=== PATIENT | female | born 1930 | race Caucasian/White ===

== ENCOUNTER → 2017-08-12 | Outpatient (CLI) | payer MEDICARE ==
[~2017-08-12] MED LIST: ALEN70TA43 PO; AMLO-99 PO; CHOL500016 PO; LEVO25TA61 PO; THYR30TA21 PO
--- NOTE | 2017-08-12 11:32 | RADIOLOGY IMAGING REPORT ---
FACILITY: [facility] PATIENT NAME: Ruthann Harding : 1930 MR: [id number] V: [id number] EXAM DATE: ORDERING PHYSICIAN: FLOWER ZHU TECHNOLOGIST: Location: [facility] [place] Patient: Ruthann Harding : 1930 Visit/Account:[id number] Date of Sevice: 08/12/2017 Renal ultrasound Indication: Elevated creatinine Comparison: None available Findings: Right kidney measures 8.8 x 4.0 x 3.5 cm in cc, AP, and transverse dimensions respectively. Intraren al waveform morphology is within normal limits. Very mild right hydronephrosis. Cortical echogenici ty is within normal limits. No mass, perinephric stranding or stone is noted. Left kidney measures 8.8 x 4.3 x 4.1 cm in cc, AP, and transverse dimensions respectively. Intrarena l waveform morphology is within normal limits. 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 Overall, cortical echogenicity is within normal limits. No mandy rning mass, stone or perinephric stranding is noted. Bladder was initially distended. Prevoid volume is 267.1 mL. Post void residual is 56.5 mL. Bilateral ureteral jets are noted. Aorta and IVC are patent. IMPRESSION: 1. Very mild right-sided hydronephrosis. Otherwise, unremarkable renal ultrasound. 2. Post void residual is 56.5 mL Report Dictated By: Johny Marte MD at 08/12/2017 11:24 AM Report E-Signed By: Johny Marte MD at 08/12/2017 11:27 AM WSN:[email or web address]
== END ==
LOC: US 02:32
PROVIDERS: ATTEND Emergency Medicine
DX: N13.30 Unspecified hydronephrosis (principal); R33.9 Retention of urine, unspecified
CPT/HCPCS: 76705

== ENCOUNTER → 2017-08-13 | Outpatient (CLI) | payer MEDICARE | LOC: LAB 12:52 | PROVIDERS: ATTEND Emergency Medicine | DX: R93.429 Abnormal radiologic findings on diagnostic imaging of unspecified kidney (principal) | CPT/HCPCS: 81001 ==

== ENCOUNTER → 2017-11-05 | Outpatient (CLI) | payer MEDICARE ==
[~2017-11-05] MED LIST changes: +LEVO50TA86 PO
[2017-11-05 11:53] LABS: PLATELET COUNT, AUTOMATED 245 K/uL (150-450)
== END ==
LOC: LAB 11:33
PROVIDERS: ATTEND Emergency Medicine
DX: E03.9 Hypothyroidism, unspecified (principal); K62.5 Hemorrhage of anus and rectum; M85.80 Other specified disorders of bone density and structure, unspecified site
CPT/HCPCS: 36415; 82306; 84443; 85025

== ENCOUNTER → 2017-11-06 | Outpatient (CLI) | payer MEDICARE ==
--- NOTE | 2017-11-06 15:49 | RADIOLOGY IMAGING REPORT ---
FACILITY: [facility] [place] PATIENT NAME: Ruthann Harding : 1930 MR: [id number] V: [id number] EXAM DATE: ORDERING PHYSICIAN: FLOWER ZHU TECHNOLOGIST: Location: [facility] Patient: Ruthann Harding : 1930 Visit/Account:[id number] Date of Sevice: 11/06/2017 DEXA Scan Clinical history: Osteopenia, postmenopausal, taking Fosamax. Comparison: DEXA scan from 09/25/2016. LUMBAR SPINE: The bone mineral density (BMD) measured from L1-L4 correlates with a Z-score of 2.1 and a T-score of 0 which is Normal as defined by the World Health Organization. The corresponding risk of fracture in the lumbar spine is Not increased compared with a young adult reference population. This value has increased by 4.5 % since the prior study. More than 5% change is considered significant. HIP: Bone mineral density (BMD) measured in the LEFT total hip region correlates with a Z-score 0.8 and a T-score of -1.7 which is osteopenia as defined by the World Health Organization. The corresponding r isk of fracture in the hip is 3-4 times increased compared to a young adult reference population. Thi s value has decreased by -0.4 % since the prior study. More than 5% change is considered significant . T score left femoral neck -2.7 Bone mineral density (BMD) measured in the Femoral Neck region measures 0.657 g/cm?. IMPRESSION: 1. Lumbar spine: Normal. There has been 4.5% increase in the bone mineral density since the previou s exam. 2. Left Total Hip: Osteopenia. There has been 0.4% decrease in the bone mineral density since the p revious exam. 3. Femoral Neck: Bone Mineral Density is 0.657 g/cm? The next DEXA scan of this patient should include the following sites: L1-L4 and the left hip. FRAX? WHO Fracture Risk Assessment Tool link: <http://www.shef.ac.uk/FRAX/tool.jsp?locationValue=9> PLEASE NOTE: 1) The World Health Organization defines low BMD as follows: T-score Normal > -1 Osteopenia < -1 and > -2.5 Osteoporosis < -2.5 without fractures Established osteoporosis < -2.5 with fractures 2) In general, you may wish to consider: Diagnosis Treatment Follow-up DEXA Normal BMD Prevention 2-3 years Osteopenia Prevention/therapy 1-2 years Osteoporosis Therapy Yearly 3) Fracture risk estimated from the T-score is more accurate for vertebral fractures (often spontane ous) than for hip fractures. Report Dictated By: Haley Dangelo MD at 11/06/2017 2:37 PM Report E-Signed By: Haley Dangelo MD at 11/06/2017 3:43 PM WSN:[email or web address]
== END ==
LOC: RAD 13:42
PROVIDERS: ATTEND Emergency Medicine
DX: Z13.820 Encounter for screening for osteoporosis (principal); M85.80 Other specified disorders of bone density and structure, unspecified site
CPT/HCPCS: 77080